=== PATIENT | male | born 1990 | race Caucasian/White ===

== ENCOUNTER 2020-08-10 18:06 | Emergency (ER) | payer OTHER ==
[~2020-08-10 18:06] MED LIST: AMOXICILLIN500 MG PO; VOLTAREN **OUT50 MG PO
== END 2020-08-10 19:39 | disposition home or self-care (01) ==
LOC: FER 18:06
DX: U07.1 COVID-19 (principal); J06.9 Acute upper respiratory infection, unspecified
CPT/HCPCS: 99283; U0002

== ENCOUNTER 2021-07-22 10:23 | Emergency (ER) | payer SELFPAY ==
[2021-07-22 12:14] LABS: CORONAVIRUS 2019 SARS-COV-2 NEGATIVE (NEGATIVE); INFLUENZA A NAA NEGATIVE (NEGATIVE)
== END 2021-07-22 14:08 | disposition left against medical advice (07) ==
LOC: FER 10:23
PROVIDERS: Internal Medicine
DX: J02.9 Acute pharyngitis, unspecified (principal); R53.83 Other fatigue; Z53.8 Procedure and treatment not carried out for other reasons; Z20.822 Contact with and (suspected) exposure to COVID-19
CPT/HCPCS: 99281; U0002